=== PATIENT | female | born 1990 | race Asian ===

== ENCOUNTER 2019-02-09 19:24 | Emergency (ER) | payer OTHER ==
[~2019-02-09] VITALS: Ht 152.4 cm; Wt 77.1 kg
[2019-02-09 19:44] VITALS: BP 175/82
[2019-02-09] MEDS ORDERED: LIDOCAINE 1% PF 2 ML VIAL. INJ ONE (20:15)
[2019-02-09] MEDS ORDERED: DIPHTH,PERTUSS(ACELL),TET TOX 0.5 ML DISP.SYRIN. VAX IM ONE (20:15)
[2019-02-09] MEDS ORDERED: NEOMY/BACITR/POLYMYXIN OINT PACKET. TP ONE (20:15)
--- NOTE | 2019-02-09 21:12 | PHYS DOC ---
Past Medical History Past Medical History: No Pertinent History (SINA CUEVAS APRN) Past Surgical History: No Surgical History (SINA CUEVAS APRN) Alcohol Use: None Drug Use: None (SINA CUEVAS APRN) Adult General Chief Complaint Chief Complaint: ANIMAL BITE HPI HPI Patient is a 28 year old female, accompanied by her , who presents to the emergency room with complaints of a laceration to the palmar aspect of her left index finger between the PIP and DIP, an abrasion to her lateral left fifth finger, and abrasions to the right second and third digits after being bit by her own personal dog this evening. Pt states she was breaking up a dog fight. She is unsure of when her last tetanus shot was. She states that her dog it UTD on all of it's shots. (SINA CUEVAS APRN) Review of Systems Review of Systems Constitutional: Denies fever or chills [] Respiratory: Denies cough or shortness of breath [] Musculoskeletal: Denies back pain; R index finger pain and swelling Integument: see HPI Neurologic: Denies headache, focal weakness or sensory changes [] Complete systems were reviewed and found to be within normal limits, except as documented in this note. (SINA CUEVAS APRN) Current Medications Current Medications Current Medications Medications (Trade) Dose Ordered Sig/Carito Start Time Stop Time Status Last Admin Dose Admin Diphtheria/ Tetanus/Acell Pertussis (Boostrix) 0.5 ml ONCE ONCE 02/09/19 20:15 02/09/19 20:16 DC 02/09/19 20:27 0.5 ML Lidocaine HCl (Xylocaine-Mpf 1% 2ml Vial) 4 ml 1X ONCE 02/09/19 20:15 02/09/19 20:16 DC 02/09/19 20:27 4 ML Neomycin/ Polymyxin/ Bacitracin (Triple Antibiotic Ointment) 1 pkt 1X ONCE 02/09/19 20:15 02/09/19 20:16 DC 02/09/19 20:27 1 PKT (MITZI LAMA DO) Allergies Allergies Allergies Coded Allergies Type Severity Reaction Last Updated Verified No Known Drug Allergies 02/09/19 No (MITZI LAMA DO) Physical Exam Physical Exam Constitutional: Well developed, well nourished, no acute distress, non-toxic appearance. [] HENT: Normocephalic, atraumatic, bilateral external ears normal, nose normal. [] Eyes: conjunctiva normal, no discharge. [] Neck: Normal range of motion, no stridor. [] Cardiovascular:Heart rate regular rhythm Lungs & Thorax: Respirations even and unlabored, no retractions, no respiratory distress Skin: Warm, dry, no erythema, no rash; 1 cm x 1 cm V-shaped laceration noted to the palmar surface of the left hand but just distal to the PIP;abrasions to the left lateral fifth digit, no bleeding; abrasions noted to the dorsal surface of the right hand at the proximal portion of the second and third finger nail beds; hematoma noted to the distal right index finger Extremities: No cyanosis, no clubbing, ROM intact; distal right index finger tenderness to palpation with moderate edema, no deformity, no crepitus Neurologic: Alert and oriented X 3, normal motor function, normal sensory function, no focal deficits noted. [] Psychologic: Affect normal, judgement normal, mood normal. [] (SINA CUEVAS APRN) Current Patient Data Vital Signs Vital Signs Date Time Temp Pulse Resp B/P (MAP) Pulse Ox O2 Delivery O2 Flow Rate FiO2 02/09/19 19:44 98.4 84 16 175/82 (113) 96 Room Air 98.4 (MITZI LAMA DO) EKG EKG [] (SINA CUEVAS APRN) Radiology/Procedures Radiology/Procedures R index finger and R middle finger negative for any acute fracture or findings read by Dr. Lama. (SINA CUEVAS APRN) Course & Med Decision Making Course & Med Decision Making Pertinent Labs and Imaging studies reviewed. (See chart for details) [] (SINA CUEVAS APRN) Dragon Disclaimer Dragon Disclaimer This electronic medical record was generated, in whole or in part, using a voice recognition dictation system. (SINA CUEVAS APRN) Departure Departure Impression: Primary Impression: Dog bite of multiple sites of left hand and fingers Additional Impressions: Dog bite of multiple sites of right hand and fingers Contusion of right index finger Need for Tdap vaccination Disposition: 01 HOME, SELF-CARE Condition: STABLE Referrals: NO PCP (PCP) Patient Instructions: Animal Bite, [id number], Contusion, Stmi-lu-Vxxy, VIS, Tetanus, Diphtheria, and Pertussis (Tdap) - CDC Additional Instructions: Fill the prescription and use it as directed. Tylenol or ibuprofen as needed for pain. Wear the aluminum finger splint that was placed until sutures are removed in 10-14 days. You can return to the emergency room or follow-up with your primary care doctor to have sutures out. Follow-up with your primary care doctor if symptoms persist, return to the ER if symptoms worsen. Scripts Amoxicillin/Potassium Clav (AUGMENTIN 875-125 TABLET) 1 Each Tablet 1 TAB PO BID, #14 TAB 0 Refills Prov: SINA CUEVAS APRN 02/09/19 Attending Signature Attending Signature I have reviewed the PA/DIESEL MAINTENANCE TECHNICIAN's note and plan of care. I was available for consultation as needed during the patient's visit in the emergency department. I agree with the clinical impression, plan, and disposition. (MITZI LAMA DO) Problem Qualifiers Primary Impression: Dog bite of multiple sites of left hand and fingers Encounter type: initial encounter Qualified Codes: S61.452A - Open bite of left hand, initial encounter; S61.259A - Open bite of unspecified finger without damage to nail, initial encounter; W54.0XXA - Bitten by dog, initial encounter Additional Impressions: Dog bite of multiple sites of right hand and fingers Encounter type: initial encounter Qualified Codes: S61.451A - Open bite of right hand, initial encounter; S61.259A - Open bite of unspecified finger without damage to nail, initial encounter; W54.0XXA - Bitten by dog, initial encounter Contusion of right index finger Encounter type: initial encounter Damage to nail status: without damage Qualified Codes: S60.021A - Contusion of right index finger without damage to nail, initial encounter SINA CUEVAS APRN Feb 09, 2019 21:12 MITZI LAMA DO Feb 11, 2019 07:53
[2019-02-09] MEDS ORDERED: AMOX1TAB61 PO (21:57)
--- NOTE | 2019-02-10 07:37 | RAD ---
RIGHT HAND, VIEWS 3 Indication: Dog bite to finger. Findings: There is no acute fracture or dislocation. Bony articulations are normal. There is no bony erosion. Mineralization is normal. No radiopaque foreign body is seen. There is no obvious subcutaneous air. There is mild soft tissue swelling of the second finger. IMPRESSION: No acute fracture. Electronically signed by: Chavez Gordon MD (02/10/2019 7:34 AM) [id number]
== END 2019-02-09 22:06 | disposition home or self-care (01) ==
LOC: ER 19:24
DX: S61.211A Laceration without foreign body of left index finger without damage to nail, initial encounter (principal); S60.021A Contusion of right index finger without damage to nail, initial encounter; S60.410A Abrasion of right index finger, initial encounter; S60.412A Abrasion of right middle finger, initial encounter; S60.417A Abrasion of left little finger, initial encounter; W54.0XXA Bitten by dog, initial encounter; Y93.89 Activity, other specified; Y92.89 Other specified places as the place of occurrence of the external cause; Y99.8 Other external cause status
CPT/HCPCS: 12001; 73130; 90471; 90715; 96372; 99284

== ENCOUNTER 2019-02-18 08:54 | Emergency (ER) | payer OTHER ==
[~2019-02-18] VITALS: Ht 152.4 cm; Wt 72.6 kg
[~2019-02-18 08:54] MED LIST: AMOX1TAB61 PO
[2019-02-18 08:56] VITALS: BP 119/82
--- NOTE | 2019-02-18 09:16 | PHYS DOC ---
Past Medical History Past Medical History: No Pertinent History Past Surgical History: No Surgical History Alcohol Use: None Drug Use: None Adult General Chief Complaint Chief Complaint: SUTURE/STAPLE REMOVAL [facility] Patient is a 28 year old female who presents for suture removal. The patient had 1 suture placed in her left second digit on February 09 after she was bit by dog. The patient was placed on Augmentin at that time. The patient reports no issues, no fevers, no exudate. Her tetanus shot was updated at the time of the sutures. Denies any other complaints. Review of Systems Review of Systems Constitutional: Denies fever or chills [] Eyes: Denies change in visual acuity, redness, or eye pain [] HENT: Denies nasal congestion or sore throat [] Respiratory: Denies cough or shortness of breath [] Cardiovascular: No additional information not addressed in [facility] [] GI: Denies abdominal pain, nausea, vomiting, bloody stools or diarrhea [] : Denies dysuria or hematuria [] Musculoskeletal: Denies back pain or joint pain [] Integument: Denies rash or skin lesions [] Neurologic: Denies headache, focal weakness or sensory changes [] Endocrine: Denies polyuria or polydipsia [] Complete systems were reviewed and found to be within normal limits, except as documented in this note. Allergies Allergies Allergies Coded Allergies Type Severity Reaction Last Updated Verified No Known Drug Allergies 02/09/19 No Physical Exam Physical Exam Constitutional: Well developed, well nourished, no acute distress, non-toxic appearance. [] HENT: Normocephalic, atraumatic, bilateral external ears normal, oropharynx moist, no oral exudates, nose normal. [] Eyes: PERRLA, EOMI, conjunctiva normal, no discharge. [] Neck: Normal range of motion, no tenderness, supple, no stridor. [] Cardiovascular:Heart rate regular rhythm, no murmur [] Lungs & Thorax: Bilateral breath sounds clear to auscultation [] Abdomen: Bowel sounds normal, soft, no tenderness, no masses, no pulsatile masses. [] Skin: healing 1 cm laceration to the left 2nd digit with one suture. Back: No tenderness, no CVA tenderness. [] Extremities: No tenderness, no cyanosis, no clubbing, ROM intact, no edema. [] Neurologic: Alert and oriented X 3, normal motor function, normal sensory function, no focal deficits noted. [] Psychologic: Affect normal, judgement normal, mood normal. [] Current Patient Data Vital Signs Vital Signs Date Time Temp Pulse Resp B/P (MAP) Pulse Ox O2 Delivery O2 Flow Rate FiO2 02/18/19 08:56 98.1 68 18 119/82 (94) 97 Room Air 98.1 EKG EKG [] Radiology/Procedures Radiology/Procedures Removed 1 suture. No exudate noted. Appears to be healing appropriately.[] Course & Med Decision Making Course & Med Decision Making Pertinent Labs and Imaging studies reviewed. (See chart for details) Removed suture, wound has healed appropriately will d/c home. Dragon Disclaimer [employer] Disclaimer This electronic medical record was generated, in whole or in part, using a voice recognition dictation system. Departure Departure Impression: Primary Impression: Visit for suture removal Disposition: HOME, SELF-CARE Condition: STABLE Referrals: NO PCP (PCP) Patient Instructions: Suture Removal-Brief Additional Instructions: Thank you for visiting [facility]. We appreciate you trusting us with your care. If any additional problems come up don't hesitate to return to visit us. Please follow up with your primary care provider so they can plan additional care if needed and know about the problem that you had. If symptoms worsen come back to the Emergency Department. Any concerning symptoms that start such as chest pain, shortness of air, weakness or numbness on one side of the body, running high fevers or any other concerning symptoms return to the ER. MITZI PATRICK APRN Feb 18, 2019 09:16
== END 2019-02-18 09:15 | disposition home or self-care (01) ==
LOC: ER 08:54
DX: S61.211D Laceration without foreign body of left index finger without damage to nail, subsequent encounter (principal); W54.0XXD Bitten by dog, subsequent encounter
CPT/HCPCS: 99281